=== PATIENT | male | born 1970 | race Caucasian/White ===

== ENCOUNTER → 2020-07-19 | Outpatient (CLI) | payer OTHER ==
[~2020-07-19] MED LIST: ALBUTEROL2.5 MG/31 INH; ARTHRITIS PAIN650 M3 PO; ASPIR 8181 M1 PO; CIPROFLOXACIN500 M1 PO; CLARITIN10 MG PO; DUONEB 2.5-0.5 M3 ML INH; LISINOPRIL10 MG PO; MEDROLDOSEPACK PO; PRAVACHOL20 MG PO; PROAIR HFA8.5 GM INH; XANAX 0.25 MG0.25 MG PO
--- NOTE | 2020-07-19 11:12 | 2DMMODE ---
[place] [address] 2 D/M-MODE ECHOCARDIOGRAM Name: HERB CACERES Room: [facility]#: [id number] Admission: 07/19/20 Attend Phys: Judy Padilla Discharge: Date of : 66 Date of Service: 07/19/20 1112 Report #: [id number] THIS REPORT FOR: cc: Judy Hollins,Jose A Stacy MD [facility] ~ APPROVED REPORT Study performed: 07/19/2020 08:56:31 EXAM: Comprehensive 2D, Doppler, and color-flow Echocardiogram Patient Location: Out-Patient BSA: 2.53 HR: 95 bpm BP: 152/88 mmHg Other Information Study Quality: Adequate Indications Dyspnea 2D Dimensions IVSd: 12.22 (7-11mm) LVOT Diam: 22.15 (18-24mm) LVDd: 58.30 mm PWd: 10.98 (7-11mm) Ascending Ao: 35.06 (22-36mm) LVDs: 32.14 (25-40mm) Aortic Root: 31.69 mm Volumes Left Atrial Volume (Systole) LA ESV Index: 11.60 mL/m2 Aortic Valve AoV Peak Ezio.: 0.89 m/s AO Peak Gr.: 3.18 mmHg LVOT Max P.58 mmHg AO Mean Gr.: 1.74 mmHg LVOT Mean P.38 mmHg LVOT Max V: 0.80 m/s AO V2 VTI: 16.08 cm LVOT Mean V: 0.55 m/s MICHELLE (VTI): 3.09 cm2 LVOT V1 VTI: 12.88 cm Mitral Valve E/A Ratio: 0.83 [place] [address] 2 D/M-MODE ECHOCARDIOGRAM Name: HERB CACERES Room: [facility]#: [id number] Admission: 07/19/20 Attend Phys: Judy Padilla Discharge: Date of : 66 Date of Service: 07/19/20 1112 Report #: [id number] MV Decel. Time: 169.90 ms MV E Max Ezio.: 0.53 m/s MV PHT: 49.27 ms MVA (PHT): 4.47 cm2 TDI E/Lateral E': 4.82 E/Medial E': 5.30 Medial E' Ezio.: 0.10 m/s Lateral E' Ezio.: 0.11 m/s Pulmonary Valve PV Peak Ezio.: 0.85 m/s PV Peak Gr.: 2.89 mmHg Left Ventricle The left ventricle is normal size. There is normal LV segmental wall motion. There is normal left ventricular wall thickness. Left ventricular systolic function is normal. The left ventricular ejection fraction is within the normal range. LVEF is 55-60%. Grade I - abnormal relaxation pattern. Right Ventricle The right ventricle is normal size. The right ventricular systolic function is normal. Atria The left atrium size is normal. The right atrium size is normal. Aortic Valve The aortic valve is normal in structure. The aortic valve is not well visualized. No aortic regurgitation is present. There is no aortic valvular stenosis. Mitral Valve The mitral valve is normal in structure. There is no mitral valve regurgitation noted. No evidence of mitral valve stenosis. Tricuspid Valve The tricuspid valve is normal in structure. There is no tricuspid valve regurgitation noted. Pulmonic Valve Pulmonic valve is not well visualized. There is no pulmonic valvular reg[place]itation[place] [address] 2 D/M-MODE ECHOCARDIOGRAM Name: HERB CACERES Room: [facility]#: [id number] Admission: 07/19/20 Attend Phys: Judy Padilla Discharge: Date of : 66 Date of Service: 07/19/20 1112 Report #: [id number] The aortic root is normal in size. IVC is not well visualized. Pericardium There is no pericardial effusion. <Conclusion> Left ventricular systolic function is normal. The left ventricular ejection fraction is within the normal range. <ELECTRONICALLY SIGNED> By: Jose A Dunbar MD, FAC 07/19/201111 11 11 Jose A Dunbar MD, FAC /INF
== END ==
LOC: M.CRD 06-21 11:00
PROVIDERS: ATTEND Nurse Practitioner Family
DX: R06.00 Dyspnea, unspecified (principal)

== ENCOUNTER 2021-11-07 14:15 | Emergency (ER) | payer OTHER ==
[~2021-11-07] VITALS: Ht 182.9 cm; Wt 136.1 kg
[2021-11-07 14:47] LABS: BE -5.4 mmol/L (-2 to +3); PCO2 41.2 mmHg (35.0-45.0); pH 7.314 (7.340-7.450)
[2021-11-07 14:50] LABS: ABSOLUTE BASOPHILS 0.1 thou/uL (0.0-0.2); ABSOLUTE EOSINOPHILS 0.5 thou/uL (0.0-0.7); ABSOLUTE LYMPHOCYTES 4.1 thou/uL (0.8-5.3); ABSOLUTE MONOCYTES 0.9 thou/uL (0.0-1.2); ABSOLUTE NEUTROPHILS 5.2 thou/uL (1.6-8.1); BASOPHILS 0.6 %; EOSINOPHILS 4.4 %; HEMATOCRIT 46.2 % (42.0-52.0); HEMOGLOBIN 15.4 gm/dL (14.0-18.0); LYMPHOCYTES 38.1 %; MCH 29.1 pg (26.0-34.0); MCHC 33.4 g/dL (28.0-37.0); MCV 87.2 fL (80.0-100.0); MONOCYTES 8.4 %; MPV 7.5 fl. (7.2-11.1); NUCLEATED RBCS 0 /100WBC; PLATELET COUNT* 302 thou/uL (150-400); POLYS 48.5 %; RDW-CV 15.1 % (10.5-14.5); WBC 10.8 thou/uL (4.0-11.0)
[2021-11-07 14:51] LABS: PO2 149.7 mmHg (75.0-100.0)
[2021-11-07 15:02] LABS: CALCIUM 8.3 mg/dL (8.5-10.1); CREATININE 1.1 mg/dL (0.6-1.3); POTASSIUM 4.6 mmol/L (3.5-5.1)
[2021-11-07 15:08] LABS: APTT 27.6 Seconds (25.0-31.3); PROTIME 10.2 Seconds (9.20-11.50)
[2021-11-07 15:13] LABS: ALBUMIN 4.1 g/dL (3.4-5.0); TOTAL BILIRUBIN 0.3 mg/dL (<0.1-1.0)
--- NOTE | 2021-11-07 15:56 | EKG ---
[place] [address] ELECTROCARDIOGRAM REPORT Name: HERB CACERES Room: [facility]#: [id number] Admission: 11/07/21 Attend Phys: Discharge: Date of : 66 Date of Service: 11/07/21 1424 Report #: [id number] THIS REPORT FOR: //name// [facility] ED Test Date: 2021-11-07 Test Time: 14:24:13 Pat Name: HERB CACERES Department: Room: Gender: Cnc Service Technician: DARIANA : 1970 Requested By: Herb Kay Order Number: [id number] MD: Rohit Red Measurements Intervals [place] Rate: 134 P: 84 [place]: 121 QRS: 42 QRSD: 88 T: 209 QT: 257 QTc: 384 Interpretive Statements Sinus tachycardia Nonspecific repol abnormality, diffuse leads Compared to ECG 03/16/2015 11:18:41 PVCs have disappeared Heart rate has increased Minor nonspecific ST-T changes have occurred Electronically Signed On 11-07-2021 15:56:46 DIRECTOR OF RESIDENTIAL SERVICES by Rohit Red [email or web address] <ELECTRONICALLY SIGNED> By: Rohit Red MD, FACC 11/07/21 1556 1424 1424 Rohit Red MD, [facility] /EPI
[2021-11-07] MEDS ORDERED: BUPROPION HCL150 M1 PO (16:15)
[2021-11-07] MEDS ORDERED: FLEXERIL PO (16:16)
[2021-11-07] MEDS ORDERED: FUROSEMIDE 20 M20 MG PO (16:16)
[2021-11-07] MEDS ORDERED: ZESTRIL40 MG PO (16:17)
[2021-11-07] MEDS ORDERED: MELOXICAM15 MG PO (16:17)
[2021-11-07] MEDS ORDERED: MONTELUKAST SODI4 M1 PO (16:17)
[2021-11-07] MEDS ORDERED: PRAVASTATIN SOD40 MG PO (16:18)
[2021-11-07] MEDS ORDERED: TRELEGY ELLIPT1 EACH (16:19)
[2021-11-07 18:40] VITALS: BP 147/85
== END 2021-11-07 18:40 | disposition short-term general hospital (02) ==
LOC: M.ERS 14:15
PROVIDERS: Emergency Medicine
DX: J93.9 Pneumothorax, unspecified (principal); Z20.822 Contact with and (suspected) exposure to COVID-19; J96.90 Respiratory failure, unspecified, unspecified whether with hypoxia or hypercapnia; J44.9 Chronic obstructive pulmonary disease, unspecified; I10 Essential (primary) hypertension; E78.00 Pure hypercholesterolemia, unspecified; F17.210 Nicotine dependence, cigarettes, uncomplicated; Z79.899 Other long term (current) drug therapy